=== PATIENT | male | born 1970 | race Caucasian/White ===

== ENCOUNTER → 2022-10-19 13:45 | Outpatient (CLI) | payer BC, SELFPAY ==
[2022-10-19 17:32] LABS: COVID19 -Nasal RAPID Negative (Negative)
== END ==
PROVIDERS: PCP Family Medicine; Referring Provider Orthopaedic Surgery; Visit Provider Orthopaedic Surgery
DX: Z20.822 Contact with and (suspected) exposure to COVID-19 (principal)
CPT/HCPCS: 87635; C9803

== ENCOUNTER 2022-10-21 12:34 | Inpatient (IN) | payer BC, SELFPAY ==
[2022-10-14 13:58] VITALS: BMI 37.7
--- NOTE | 2022-10-21 06:00 | DI.RAD.S_ITS ---
PROCEDURE: XR KNEE RT 1TO2V INDICATIONS: prosthesis placement TECHNIQUE: 2 view(s) of the knee acquired. COMPARISON: [facility], CT, CT KNEE RIGHT WITHOUT CONTRAST, 06/24/2022, 8:30. FINDINGS: Bones: Patient is status post knee joint arthroplasty. Hardware components are in expected positions. Visualized bony structures are intact. Soft tissues: Overlying postoperative changes are noted. IMPRESSION: Postoperative knee arthroplasty changes. Dictated by: Bianca Clemente M.D. on 10/21/2022 at 16:44 Approved by: Bianca Clemente M.D. on 10/21/2022 at 16:44
[2022-10-21 12:51] VITALS: BMI 36.6
--- NOTE | 2022-10-21 13:03 | PM.PREOP ---
Pre-operative Note COVID-19 COVID-19 status: Negative Result date/Date tested (Pos, Neg/Pending): 10/19/22 Interval Note History & Physical reviewed/Exam performed by Physician: Yes Changes to H&P: No
[2022-10-21] MEDS: CELECOXIB 200 MG CAPSULE PO (13:04)
[2022-10-21] MEDS: ACETAMINOPHEN 325 MG TABLET 975 MG PO (13:04)
[2022-10-21] MEDS: LACTATED RINGERS 1,000 ML 42 ML IV ×2 (13:15→14:40)
[2022-10-21] MEDS: PREGABALIN 75 MG CAPSULE PO (13:22)
[2022-10-21] MEDS: CEFAZOLIN 3 GM IN 0.9 % NACL 3 GM/100 ML PLAST..BAG IV (13:54)
[2022-10-21] MEDS: TRANEXAMIC ACID 1,000 MG VIAL 1000 MG INJ ×2 (14:08→15:47)
--- NOTE | 2022-10-21 14:26 | SUR.OPER ---
Supine on padded OR bed, head on pillow, arms secured on padded arm boards at <90 degrees abduction, legs uncrossed, safety belt at abdomen, tape over blanket over lower left leg. Demayo positioner padded and used to position right leg.
[2022-10-21] MEDS: BUPIVACAINE 0.25% (PF) 60 ML, EPINEPHrine 0.3 MG INJ (15:34)
[2022-10-21] MEDS: MORPHINE 4 MG/ML INJ INJ (15:35)
[2022-10-21] MEDS: BUPIVACAINE LIPOSOME 266 MG/20 ML VIAL INJ (15:35)
[2022-10-21 16:10] VITALS: BP 166/93; PULSE 92; RESP 16; TEMP 36.8
[2022-10-21 16:15] VITALS: BP 178/93; PULSE 88; RESP 18; O2SAT 91
[2022-10-21 16:20] VITALS: BP 166/93; PULSE 90; RESP 14; O2SAT 93
--- NOTE | 2022-10-21 16:27 | PM.OP.1 ---
Operative Date/Time/Diagnoses Date of procedure: 10/21/22 Time of procedure: 16:28 Pre-op diagnosis: Failed unicompartmental arthroplasty right knee Post-op diagnosis: same Procedure & Clinicians Procedure: Revision of tibial and femoral components of unicompartmental arthroplasty to total knee replacement Same procedure as scheduled: Yes Indications: The patient is a 52-year-old gentleman who previously had a right knee unicompartmental arthroplasty. He has had ongoing knee pain and this has not responded to non operative treatment options. After discussion the risks benefits and alternatives he has requested revision to total knee replacement. Risks discussed included but were not limited to: Failure to improve, stiffness, infection, nerve damage, deep venous thrombosis, pulmonary embolism, stroke, myocardial infarction, permanent paralysis and . Surgeon: Juan Morton General Office Associate: Jani Almeida Click Yes if Unassisted: Yes Anesthesia Type: General, Spinal and Local Operative Notes Findings: Well-fixed unicompartmental arthroplasty, significant patellofemoral osteoarthritis Closure Type: primary Specimen(s): none sent Prosthetic devices, grafts, tissues, transplants, or devices: Implants used in this procedure were manufactured by the [employer] and included the BCS II Journey total knee replacement with a size 6 right Oxinium femoral component, a size 6 right legion revision with Journey lock detail tibial base plate, a 4 mm legion offset autocad electrical designer, a 5 mm right medial semaj stepped tibial augmentation wedge, a straight 16 mm x 160 mm stem, a 9 mm cross-linked polyethylene tibial insert and a 38 mm oval Lyly II patella. Applied: implant(s) Estimated Blood Loss (mL): 100 Blood products transfused: none Tourniquet time (min): 90 Procedure in detail: The patient was seen in the pre-operative area, where the patient identified the right knee as the operative site and this was marked with my initials. The patient received pre-operative antibiotics, and was taken to the operating room and placed on the operative table in the supine position. After satisfactory anesthesia, a part time flexible clerk out was performed. The right leg was encircled with a tourniquet about the proximal thigh, and the leg was prepared from the toes to the tourniquet with ChloroPrep in the usual fashion and draped through sterile drapes. The leg was elevated and exsanguinated with Eschmark bandage and the tourniquet inflated to 250 mmHg pressure. The knee was approached through an approximately 18 cm incision centered over the patella and carried into the knee through a medial parapatellar arthrotomy. The anterior osteophytes and soft tissues were removed. The rotational landmarks of Pipestone's line and the transepicondylar axis were marked on the femur with electrocautery, and intramedullary guide holes for the femur and tibia were created. The distal femoral cut was made in 6 degrees of valgus using the intramedullary guide at the primary cut setting. This cut was made avoiding the lugs on the femoral prosthetic. The femoral prosthetic was then removed using the mini saw and osteotomes. The distal femoral cut was then revised to clean it up. The femur was sized and the appropriate cutting guide placed in the anterior posterior and chamfer cuts were made. The menisci were removed. The proximal tibial cut was then made using the intramedullary guide, taking 12 mm of bone off the less involved side. The central canal was then reamed with the cylindrical reamers up to a size 16. The revision tibial guide was placed and the proximal canal enlarged for the autocad electrical designer and the offset. The tibial trial was placed and the augment cut made for the medial side. This was necessary due to the very deep cut that had been made for the unicompartmental arthroplasty. The cutting guides were then removed after making the fin cuts. The medial cut was cleaned up to fit the augment. A trial prosthetic was then assembled on the back table and placed with good fit. Trial femoral components were then placed and the intercondylar notch cut through the femoral trial. Range of motion was 0-135 degrees, with good stability throughout the range. The patella was then cut to accommodate the patellar prosthetic. There was no need for a lateral release. The trials were then removed, and the femoral hole plugged with a bone plug. The bone was prepared with pulsatile lavage, and dried with a sponge. Cement was applied and the final prosthetics placed. Excess cement was removed during and after cement curing. While the cement cured, the knee and the periarticular tissues were injected with a total of 60 mL 0.25% Marcaine with epinephrine and 20 mL of Exparel with 4 mg of morphine. After confirming there was no extruded cement posteriorly, the final tibial insert was placed. The knee was copiously irrigated and the tourniquet deflated. Hemostasis was obtained. The capsule was closed with interrupted # 2 polyester suture. The subcutaneous layer was closed with 3-0 Vicryl, and the skin with a running 3-0 V-Lock suture and Dermabond. An Aquacel Ag dressing was applied and the patient was taken to recovery having tolerated the procedure well. The assistance of Dr. Almeida was required for positioning, exposure and retraction to protect vital structures. Without the services of a skilled after school program assistant this surgery could not have been performed expediently her safely. Complications: none Post-operative Condition: stable Disposition: PACU Plan for aftercare: The patient will be maintained on a standard total knee replacement protocol with weight bearing as tolerated. The patient will receive aspirin and sequential compression devices for DVT prophylaxis. The patient will be discharged home when safe for the home environment.
[2022-10-21 16:34] VITALS: BP 161/93; PULSE 89; RESP 14; O2SAT 91
[2022-10-21 16:48] VITALS: BP 158/87; PULSE 89; RESP 16; O2SAT 91
[2022-10-21 17:13] VITALS: BMI 36.6
[2022-10-21] MEDS: LACTATED RINGERS 1,000 ML 100 ML IV (18:19)
[2022-10-21] MEDS: ASPIRIN EC 81 MG TABLET PO (20:04)
[2022-10-21] MEDS: DOCUSATE 100 MG CAPSULE PO (20:04)
[2022-10-21] MEDS: OXYCODONE IR 10 MG TABLET PO ×2 (20:04→23:12)
[2022-10-21] MEDS: IBUPROFEN 400 MG TABLET PO (20:05)
[2022-10-21 21:30] VITALS: BP 150/84; PULSE 91; RESP 16; TEMP 36.4; O2SAT 95
[2022-10-21] MEDS: CEFAZOLIN 2 GM/100 ML PREMIX 100 ML IV (21:32)
[2022-10-21] MEDS: ACETAMINOPHEN 325 MG TABLET 650 MG PO (23:13)
[2022-10-22] MEDS: IBUPROFEN 400 MG TABLET PO ×4 (01:12→12:29)
[2022-10-22] MEDS: HYDROMORPHONE 2 MG TABLET PO ×2 (03:25→09:40)
[2022-10-22 03:30] VITALS: BP 152/78; PULSE 89; RESP 14; TEMP 36.3; O2SAT 97
[2022-10-22] MEDS: ACETAMINOPHEN 325 MG TABLET 650 MG PO ×2 (05:34→12:30)
[2022-10-22] MEDS: CEFAZOLIN 2 GM/100 ML PREMIX 100 ML IV (05:34)
[2022-10-22 07:21] LABS: Hematocrit 34.4 % (41-53); Hemoglobin 12.1 g/dL (13.5-17.5)
[2022-10-22 07:30] VITALS: BP 153/90; PULSE 82; RESP 20; TEMP 36.5; O2SAT 96
--- NOTE | 2022-10-22 07:42 | PM.DS.1 ---
History of Present Illness History of Present Illness Date Patient Seen: 10/22/22 Time Patient Seen: 07:42 Chief complaint: INPT Narrative: The history and physical is contained in the chart and previously completed note. Please refer to that note for this information. Discharge Providers Provider Date of admission: 10/21/22 12:34 Discharge Date: 10/22/22 Primary care physician: Tung Blancas MD Consults: 10/21/22 06:00 Consult to Anesthesiology Routine Comment: Consulting Provider: Anesthesiologist Reason for consultation: Regional block for post operative pain control 10/21/22 17:07 Consult to Discharge Planning Routine Comment: Consult to Physical Therapy Evaluate & Treat Comment: Physician Instructions: postop TKA protocol Discharge provider: Juan Morton MD Summary Hospital Course Discharge Diagnosis: 1. Failed right knee unicompartmental arthroplasty 2. Post hemorrhagic anemia Hospital Course: The patient was admitted to the hospital and taken directly to the operating room on October 21, 2022 where he underwent a revision of his unicompartmental arthroplasty to a total knee replacement. He tolerated this well. He did have postoperative pain control issues but eventually got this under control. On postoperative day 1 he appears stable for discharge home. Status at Discharge Cognitive/behavioral status at discharge: at baseline, oriented Functional status at discharge: uses cane/walker Overall status at discharge: patient is progressing back to baseline Time Spent with Patient Time spent: Less than 30 minutes Exam Vital Signs (past 8 hours): - 10/22/22 03:30 Temperature 97.4 F L Pulse Rate 89 Respiratory Rate 14 Blood Pressure 152/78 H Pulse Oximetry 97 Oxygen Flow Rate 0 Oxygen Delivery Method Room Air Oxygen Flow Rate 0 Narrative Exam Narrative: Right knee wound is dressed with no drainage on the bandage. Calf is soft. Light touch and motion are intact in the right lower extremity. Objective Labs Result Diagrams: 10/22/22 06:59 Labs: Laboratory Results - last 24 hr 10/22/22 06:59 Hgb 12.1 L Hct 34.4 L PFSH Medical History (Updated 10/14/22 @ 14:20 by Lidia Peralta RN) ADD (attention deficit disorder) COVID-19 virus infection (10/2021) Depression Excessive daytime sleepiness H/O multiple concussions Hypertension Obstructive sleep apnea of adult Osteoarthritis Primary insomnia Snoring Surgical History (Updated 10/14/22 @ 14:10 by Lidia Peralta RN) History of nasal surgery Hx of arthroscopy of left knee Hx of arthroscopy of right knee Hx of elbow surgery S/P right unicompartmental knee replacement (01/2022) Family History (Updated 05/08/20 @ 12:22 by EDUARDA New) Father Cancer Hypertension Alcohol abuse by father Mother Hypertension Social History (Updated 03/30/19 @ 22:21 by EDUARDA New) marital status: details: dariana Nash, lives in [place] household members: spouse lives independently: Yes caregiver/support person: No housing: house occupational status: employed (at the [employer]) current occupational exposures/hazards: Yes (works in [place]) Smoking Status: Former smoker alcohol intake: current Discharge Assessment & Plan Assessment and Plan Assessment: Patient is stable postoperative day 1 status post a revision right total knee replacement. He has a mild post hemorrhagic anemia but this should resolve with normal diet. His pain control is now adequate. He has been able to get up and go to the bathroom. Plan of Treatment: Discharge to home today with follow-up in my office in 10-14 days. Discharge prescriptions for hydromorphone and Vistaril have been called to his pharmacy. He has been instructed in the use of ibuprofen and Tylenol for baseline pain control and the use of low-dose aspirin for DVT prophylaxis. Discharge Plan Discharge Plan Patient Disposition: Home Discharge orders & Medications Prescriptions: New acetaminophen 325 mg Tablet 650 mg PO Q6HR Qty: 250 0RF aspirin 81 mg Tablet,Delayed Release (Dr/Ec) 81 mg PO BID Qty: 84 0RF hydromorphone 2 mg Tablet 2 mg PO Q4H PRN (Reason: Pain, Severe (7-10)) Qty: 40 0RF ibuprofen 400 mg Tablet 400 mg PO Q4HR Qty: 250 0RF hydroxyzine pamoate 25 mg Capsule 25 mg PO Q6HR PRN (Reason: Spasms) Qty: 30 0RF Continued methylphenidate HCl 10 mg Tablet 10 mg PO DAILY PRN (Reason: ADD symptoms) amlodipine 10 mg Tablet 10 mg PO DAILY lisinopril 5 mg tablet 40 mg PO DAILY Discontinued Advil Dual Action 125-250 mg Tablet 2 tab PO BID No Action (DME) Resmed Airsense 10 CPAP Qty: 1 Dose Instruction: As directed Label Comments: Pressure: 17 cmH2O DME: [facility] Rx Instructions: As directed Follow up/Referrals: Tung Blancas MD [Primary Care Provider] - Juan Morton MD [Physician] - As previously scheduled Discharge Health Status Multidrug resistant organism: No MDRO Diet/Activity/Treatments Diet: Diet as Tolerated and Regular Activity: You may bear weight as tolerated on your right leg. Cold/Heat Therapy: You may apply ice for 15 minutes of every hour as needed to the right knee for pain control. Skin/Wound/Dressing Care Report to your healthcare provider any signs of infection, such as:: chills, fever, night sweats, increased pain, unusual drainage and unusual redness Dressing: You may remove the Maxim wrap 3 days after surgery and shower normally with the deeper dressing in place. Leave the deeper dressing in place until postoperative follow-up. If the central strip of the dressing becomes saturated with either water or blood, please call the office to have it evaluated. Visit Report/Discharge Packet Instructions: DI for Knee Replacement, DI for Prescription Opioid Use Stand Alone Forms: Surgery Discharge Discharge Data Primary Care Provider: Tung Blancas Quality VTE Deep Vein Thrombosis/Pulmonary Embolism Present on Admission: No
--- NOTE | 2022-10-22 09:00 | PT.IIE ---
Current Diagnoses Broken internal joint prosthesis, other site, initial encounter (10/21/22) Surgery Performed Operation Date: 10/21/22 14:15 Actual Procedures p Total Knee Arthroplasty Revision(Right) - Juan Morton MD Surgical History (Last Updated 10/14/22 @ 14:10 by Lidia Peralta, RN) History of nasal surgery Hx of arthroscopy of left knee Hx of arthroscopy of right knee Hx of elbow surgery S/P right unicompartmental knee replacement (01/2022) Medical History (Last Updated 10/14/22 @ 14:20 by Lidia Peralta RN) ADD (attention deficit disorder) COVID-19 virus infection (10/2021) Depression Excessive daytime sleepiness H/O multiple concussions Hypertension Obstructive sleep apnea of adult Osteoarthritis Primary insomnia Snoring Physical Therapy Inpatient Evaluation/Re-Eval M1 PT/OT-IP Prior Functional Status Start: 10/22/22 14:38 Freq: NEEDED Status: Active Protocol: Document 10/22/22 09:00 AB (Rec: 10/22/22 14:48 AB [id number]) Medical Review Prior Functional Status Medical History Reviewed Yes Communication able to make needs known Mobility and Gait pt sted that he is independent with all mobilties and ambulation wihtout AD Social History Household Members spouse Living Arrangements House Number of Floors (Floors) Two Floors Number of Stairs To Enter/Railing? pt has an elevator to get to 2nd level the house no steps to enter Home Environment Standard Height Toilet,Walk in Shower Home Equipment Front Wheel Walker,Hand Held Shower,Grab Bars In Shower Employment Status Administrative Technician Employed Additional Social History Comment pt works at the [employer] M2 PT-IP Current Condition Start: 10/22/22 14:38 Freq: NEEDED Status: Active Protocol: Document 10/22/22 09:00 AB (Rec: 10/22/22 14:48 AB [email or web address]) Physical Therapy Current Condition Current Condition Evaluation Date 10/22/22 Treatment Diagnosis s/p R TKA revision; difficulty in walking Onset Date 10/21/22 M3 PT-IP Subjective Start: 10/22/22 14:38 Freq: NEEDED Status: Active Protocol: Document 10/22/22 09:00 AB (Rec: 10/22/22 14:48 AB [id number]) Subjective Physical Therapy Visit Type Type Initial Evaluation Visit Start Time 09:00 Visit Stop Time 09:46 Total Visit Minutes 46 Number of HANGAR ATTENDANT Visits 0 Physical Therapy Visit Comments Patient Comments agreeable to do PT Therapy Pain Assessment Pain When Pain Assessed At Rest Pain Present Pain Present Pain Reported Location Right Knee Intensity 4 Scale Used Numeric (0 - 10) Pain Behaviors Guarding,Holding Area,Wincing Pain Management Techniques Distraction,Modification of Treatment,Re-positioning, Timing of Activity with Medications M4 PT-IP Mobility and Gait Start: 10/22/22 14:38 Freq: NEEDED Status: Active Protocol: Document 10/22/22 09:00 AB (Rec: 10/22/22 14:48 AB [id number]) PT-Bed Mobility Assessment Supine to Sit Supine to Sit Standby Assistance Sit to Supine Sit to Supine Standby Assistance PT-Transfer Assessment Sit to and From Stand Sit to and from Stand Standby Assistance,1 Person Assistance Equipment Transfer Assistive Device Gait Belt,Front Wheeled Walker Orthotic/Prosthetic Devices or Brace: No Transfers Transfer Destination Chair Transfer Technique ambulated Transfer Ability Level of Assist Standby Assistance Comments Mobility Comments completed supine to sit SBA. able to sit on EOB SBA. completed sit to stand SBA and ambulated in room with initial CGA with slight R knee buckling. cued for quads contractions, steadiness and smaller strides and pt able to follow and needing SBA with cues afterwards. pt sat on chair. educated on safety and techniques. pt completed sit to stand from chair SBA with heavy arm use and unsteady transition to FWW. instructed pt to sit back on chair. educated on techniques and body positioning. completed sit <> stamd x 3 and completed SBA with steadier initial standing. pt ambulated in room ~ 35 ft SBA using FWW. Bed mobility training completed requiring SBA and cues for techniques. pt ambulated to the chair using FWW SBA. positioned pt on the chair. call light and table placed within reach. Gait Assessment Gait Gait Assistance Required: Standby Assistance,Contact Guard Assist Distance (Feet) 35 Able to Maintain Weight Bearing Status Yes During Gait Assistive Devices Assistive Device Gait Belt,Front Wheeled Walker Orthotic/Prosthetic Devices or Brace: No Gait Deviations General Gait Pattern Antalgic,Decreased Stride Length,Decreased Feet Clearance,Step-to Gait Factors Limiting Gait Function Factors Limiting Gait Function Decreased Activity Tolerance, Decreased Strength,Limited Range of Motion,Pain,Poor Balance,Poor Safety Awareness PT-Balance Assessment Sitting Balance and Reactions Static Sitting Balance Ability Normal Dynamic Sitting Balance Ability Good Standing Balance and Reactions Static Standing Balance Ability Fair Dynamic Standing Balance Ability Fair Device Used FWW M5 PT-IP Objective Assessments Start: 10/22/22 14:38 Freq: NEEDED Status: Active Protocol: Document 10/22/22 09:00 AB (Rec: 10/22/22 14:48 [email or web address]) Orientation Orientation/Cognition Level of Alertness Alert Orientation Name,Place,Situation Language Function Ability No Deficits Noted Safety Awareness Understands Safety Issues Memory Description No Deficits Noted Gross Range of Motion Lower Extremity ROM Assessment Right Impaired Impairments R knee flexion: ~ 30 degrees R knee extension with 30 deg less to 0 Strength Lower Extremity Strength Assessment Right Impaired Hip 4-/5 Knee 3+/5 Sensation Assessment Sensation Gross Sensation WNL Muscle Tone Muscle Tone WNL Yes M6 PT-IP Treatment Start: 10/22/22 14:38 Freq: NEEDED Status: Active Protocol: Document 10/22/22 09:00 AB (Rec: 10/22/22 14:48 [email or web address]) Physical Therapy Treatment Education Education Provided Precautions,Weight Bearing Status,Post-Op Packet,Safety M7 PT-IP Assessment and Plan Start: 10/22/22 14:38 Freq: NEEDED Status: Active Protocol: Document 10/22/22 09:00 AB (Rec: 10/22/22 14:48 [email or web address]) PT Summary Assessment and Plan Potential Rehabilitation Potential Good Status of Condition at Evaluation Stable Summary Impairments Pain,ROM,Strength,Balance, Coordination,Sensation,Tone, Cognition,Bed Mobility, Transfers,Gait,Activity Tolerance Assessment Summary Pt requiring SBA with mobility using FWW and plans to go home with spouse to assist him . pt stated that he will call outpt PT to schedule. pt may go home when medically stable. Goals Bed Mobility Goal Independent Transfer Goal Independent,Front Wheeled Walker Gait Goal Independent,Front Wheel Walker Gait Distance 200 Days to Meet Goals 3 Frequency of Treatment Frequency Of Treatment Twice a Day Treatment Plan Physical Therapy Treatment Plan Bed Mobility Training,Transfer Training,Gait Training, Therapeutic Exercise,Balance Retraining,Post Op Education, Discharge Planning,Hot or Cold Pack,Neuromuscular Re-ed, Coordination Retraining,Manual Therapy Weight Bearing Status Weight Bearing Status Weight Bear as Tolerated Allowed Weight Bearing Amount (enter % RLE WBAT or #) (%) Recommendations To Nursing Amount of Assist Needed 1 Person Assist Discharge Recommendations PT Discharge Recommendations Home with Assistance, Outpatient PT Transportation Needs at Discharge Private Vehicle
[2022-10-22] MEDS: ASPIRIN EC 81 MG TABLET PO (09:41)
[2022-10-22] MEDS: DOCUSATE 100 MG CAPSULE PO (09:41)
[2022-10-22] MEDS: AMLODIPINE 5 MG TABLET 10 MG PO (09:42)
[2022-10-22 09:43] VITALS: BP 153/90; PULSE 82
[2022-10-22] MEDS: lisinopriL 5 MG TABLET 40 MG PO (09:43)
[2022-10-22] MEDS: OXYCODONE IR 5 MG TABLET PO (12:29)
--- NOTE | 2022-10-22 12:54 | PC.NURSE ---
Discharge note: Patient discharged home per MD order and cleared by PT. Discharge instructions given to patient and spouse, discussed importance of F/U with Ortho, dressing care, mobility precautions, and new medications. Both verbalized understanding of instructions. Home via private vehicle accompanied by spouse. Rx to be picked up on way home.
--- NOTE | 2022-10-22 14:51 | CM.DANOTE ---
Initial DCP Assessment Note Pt is a 52 yo male, resident of [place], now POD#1 from revision of his unicompartmental arthroplasty to a total knee replacement by Dr Morton PCP: Tung Blancas Payer: [employer] Reviewed chart, pt discussed in multidisciplinary rounds this morning. Therapy has cleared pt for return home w/family to assist and pt has planned for home, DC order from Ortho has already been initiated this morning. No barriers identified at this time to patient's safe discharge home w/spouse to assist; close outpatient f/u recommended. NATALIO Rosenbaum Discharge Planning/Care Management CM Discharge Assessment Start: 10/22/22 13:56 Freq: Status: Active Protocol: Document 10/22/22 13:56 LELIA (Rec: 10/22/22 14:51 LELIA [id number]) Discharge Planning Assessment Assigned Charge Hand NATALIO Myers DPOA/Assigned Designee Name Trini Baker, spouse Contact Information [phone] Advance Directives? No History Provided By Patient,Medical Record Prior Living Arrangements House Household Members spouse Type of transporation used prior to Drives own vehicle admit Independent with ADL's Yes Is patient alert and oriented? Yes Patient/Family Preference OP PT Therapy Barriers to Discharge No Comment Home w/spouse and outpatient PT Discharge Plan Home Transportation Arrangement Spouse Referrals Initiated None needed
== END 2022-10-22 12:59 | disposition home or self-care (01) | DRG 468 ==
PROVIDERS: Admitting Provider Orthopaedic Surgery; PCP Family Medicine; Referring Provider Orthopaedic Surgery; Visit Provider Orthopaedic Surgery
PROC: 0SRC0J9 Replacement of Right Knee Joint with Synthetic Substitute, Cemented, Open Approach (ICD-10-PCS; principal; 2022-10-21 14:15)
DX: T84.092A Other mechanical complication of internal right knee prosthesis, initial encounter (principal); M70.51 Other bursitis of knee, right knee; F98.8 Other specified behavioral and emotional disorders with onset usually occurring in childhood and adolescence; I10 Essential (primary) hypertension; F17.290 Nicotine dependence, other tobacco product, uncomplicated; Z20.822 Contact with and (suspected) exposure to COVID-19
CPT/HCPCS: 36415; 73560; 85014; 85018; 87635; 97161; 97530; C1776; C9803; C1713; C9290; J0171; J0690; J1100; J2250; J2270; J2405; J2704; J3010